=== PATIENT | female | born 1975 | race Caucasian/White ===

== ENCOUNTER 2021-06-14 15:19 | Emergency (ER) | payer MEDICAID ==
[~2021-06-14] VITALS: Ht 177.8 cm; Wt 79.4 kg
[2021-06-14 15:25] VITALS: BP 122/77
--- NOTE | 2021-06-14 15:25 | NUR ---
PT BIB [facility] C/O "Accidentally cut tip of Right mid finger with a mandolin". PT A/Ox4. Tolerating R/A with no SOB.
--- NOTE | 2021-06-14 15:36 | NUR ---
WOUND CARE DONE TO PT'S RIGHT HAND
[2021-06-14] MEDS ORDERED: HYDROCODONE/APAP 5/325MG TABLET ONE (15:38)
--- NOTE | 2021-06-14 15:43 | NUR ---
TIESHA SHABAZZ AT PT'S BEDSIDE
[2021-06-14] MEDS ORDERED: GELATIN SPONGE,ABSORBABLE 1 SPONGE SPONGE TP ONE (15:46)
[2021-06-14] MEDS ORDERED: IBUP-1957 PO ×2 (15:59→16:01)
[2021-06-14] MEDS ORDERED: CEPH500C2 PO ×2 (15:59→16:01)
[2021-06-14] MEDS ORDERED: HYDROCODONE/APAP 5/325MG TABLET PO ONE (16:00)
--- NOTE | 2021-06-14 16:07 | NUR ---
Patient discharged to home in stable condition. Written and verbal after care instructions given. Patient verbalizes understanding of instruction.
== END 2021-06-14 16:07 | disposition home or self-care (01) ==
LOC: ER 15:21
DX: S61.212A Laceration without foreign body of right middle finger without damage to nail, initial encounter (principal); W26.8XXA Contact with other sharp object(s), not elsewhere classified, initial encounter; Y93.89 Activity, other specified; Y92.89 Other specified places as the place of occurrence of the external cause; Y99.8 Other external cause status

== ENCOUNTER 2021-06-17 10:15 | Emergency (ER) | payer MEDICAID, OTHER ==
[~2021-06-17] VITALS: Ht 180.3 cm; Wt 77.1 kg
[~2021-06-17 10:15] MED LIST: CEPH500C2 PO; IBUP-1957 PO
[2021-06-17 12:30] VITALS: BP 139/86
--- NOTE | 2021-06-17 12:45 | NUR ---
SEEN BY DR VERA. PT PROVIDED W. WOUND CARE.
--- NOTE | 2021-06-17 12:52 | NUR ---
Patient discharged to home in stable condition. Written and verbal after care instructions given. Patient verbalizes understanding of instruction.
== END 2021-06-17 13:02 | disposition home or self-care (01) ==
LOC: ER 10:18
DX: S61.302D Unspecified open wound of right middle finger with damage to nail, subsequent encounter (principal); Z79.1 Long term (current) use of non-steroidal anti-inflammatories (NSAID); Z79.899 Other long term (current) drug therapy; X58.XXXD Exposure to other specified factors, subsequent encounter
CPT/HCPCS: 99281; A6403